=== PATIENT | male | born 1985 | race Two or more races ===

== ENCOUNTER 2016-09-05 03:31 | Emergency (ER) | payer SELFPAY ==
[2016-09-05 03:47] VITALS: RESP 18; TEMP 96
[2016-09-05] MEDS ORDERED: Sodium Chloride 0.9% 1,000 ML PRIMARY IV ONE (03:50)
[2016-09-05] MEDS ORDERED: NORMAL SALINE 10 ML SYRINGE FLUSH IVP PRN (03:50)
[2016-09-05] MEDS ORDERED: Sodium Chloride 0.9% 1,000 ML, Magnesium Sulfate 2gm (Premix) 50 ML with Multivitamin I... IV ONE ×5 (03:52)
[2016-09-05 04:05] LABS: BASOPHILS # (AUTO) 0.15 10*3/UL; EOSINOPHILS # (AUTO) 0.03 10*3/UL; EOSINOPHILS % (AUTO) 0.4 % (0-8); HEMATOCRIT 42.9 % (42.0-52.0); HEMOGLOBIN 15.6 g/dL (14.0-18.0); LYMPHOCYTES # (AUTO) 2.26 10*3/uL; MEAN CORPUSCULAR HEMOGLOBIN 32.4 PG (27-31); MEAN CORPUSCULAR HGB CONC 36.4 g/dL (33-37); MEAN PLATELET VOLUME 8.6 FL (7.4-12.2); MONOCYTES % (AUTO) 7.8 % (5-15); NEUTROPHILS # (AUTO) 4.63 10*3/UL; NEUTROPHILS % (AUTO) 60.3 % (50-80); RED BLOOD COUNT 4.82 10^6/uL (4.70-6.10)
[2016-09-05 04:07] LABS: PLATELET MORPHOLOGY COMMENT NORMAL MORPHOLOGY (NORM); RBC MORPHOLOGY COMMENT NORMAL MORPHOLOGY (NORM); WBC MORPHOLOGY COMMENT NORMAL MORPHOLOGY (NORM)
[2016-09-05 04:11] LABS: BLOOD UREA NITROGEN 8 mg/dL (7-22); BUN/CREATININE RATIO 13.33 (6-20); CALCIUM 8.9 mg/dL (8.7-10.7); EST GLOMERULAR FILTRATION > 60 (>60 ml/min/1.73m(2)); SERUM ALBUMIN 4.9 g/dL (3.5-4.8)
--- NOTE | 2016-09-05 04:43 | DI ---
HISTORY: Trauma. COMPARISON: None available. TECHNIQUE: Non-contrast CT brain. Overall image quality is satisfactory. FINDINGS: EXTRACRANIAL SOFT TISSUES- Right posterior parietal/occipital soft tissue contusion. BONE - Calvarium: No depressed skull fracture. Temporal mastoids: No effusion. Included paranasal sinuses: Well aerated, noting maxillary sinus mucosal thickening. Orbits: No acute abnormality. CSF SPACES - Ventricles: Normal. Subarachnoid spaces: Normal. BRAIN - No abnormal parenchymal attenuation. No acute intracranial bleed, large vessel territory infarct or midline shift. IMPRESSION: 1. No acute intracranial bleed or depressed skull fracture. 2. Right posterior parietal/occipital soft tissue scalp contusion. RECOMMENDATION: If discrepancy between CT findings and neurologic status, consider MRI for further e valuation.
[2016-09-05 05:43] LABS: URINE SAMPLE TYPE VOIDED SPECIMEN
[2016-09-05 05:44] LABS: AMPHETAMINE SCREEN NEGATIVE (NEG); CANNABINOID SCREEN,URINE NEGATIVE (NEG); COCAINE SCREEN NEGATIVE (NEG); METHADONE URINE SCREEN NEGATIVE (NEG); METHAMPHETAMINES SCREEN,URINE NEGATIVE (NEG); OPIATE SCREEN,URINE NEGATIVE (NEG); URINE SPECIFIC GRAVITY - MAN 1.008
--- NOTE | 2016-09-05 06:33 | PDOC ---
General Adult HPI - General Chief Complaint: Clear for Confinement/DUI Draw Stated Complaint: ETOH INTOXICATION Date Seen by Provider: 09/05/16 Time Seen by Provider: 03:50 Source: POSITIVE: Patient, Police Exam Limitations: POSITIVE: No limitations Nurse's Notes Reviewed & Considered: Yes - History of Present Illness Initial Comment: The patient is a 30-year-old male brought to the emergency room by the [place] Police. Patient was reportedly found lying in the middle of the street in [place]. Passersby called the police and the police brought him here. The patient is apparently well known to the [place] police as a chronic alcoholic. Patient was reportedly "passed out drunk" in the middle of the street. Police officers state that upon their arrival the patient would only weakly respond to sternal rub. He was noted to have an abrasion over the right parietal occipital area. Patient may have struck his head when he fell down in the street intoxicated, however other etiologies of his scalp trauma cannot be ruled out. Patient has a long-standing history of chronic daily alcohol abuse. He denies any known medical problems or surgical history. He denies any substance abuse other than alcohol. He states he does not smoke. Have you received a tetanus shot in the past 10 years?: Unknown Body Location Affected: REPORTS: Head, Other (Alcoholic intoxication) Timing: REPORTS: Unknown Duration: Unknown (Please for called to the scene somewhat over an hour [employer]) Severity: Severe (Severe alcoholic intoxication) Quality: REPORTS: Other (Patient denies any pain anywhere) Context: REPORTS: Fall Modifying Factors: improves with: Nothing Similar Symptoms Previously: Yes Recent Care Received: REPORTS: Denies Any Prior Injuries Related to Current Complaint?: Yes (abrasion right occipital parietal area of the scalp) - Patient Home Medications Home Medications: Home Medications HydrOXYzine Cap [Vistaril Cap] 25 mg PO PRN cap 04/29/15 - Patient Allergies Allergies/Adverse Reactions: Allergies Allergy/AdvReac Type Severity Reaction Status Date / Time No Known Allergies Allergy Verified 09/05/16 03:36 Past Medical History - heen HEENT History: Denies History Cardiovascular History: Denies History Respiratory History: Denies History Gastrointestinal History: Denies History Genitourinary History: Denies History Endocrine History: Denies History Musculoskeletal History: Denies History Neurological History: Denies History Blood Disorders: Denies History Psychiatric History: Denies History History of Sexually Transmitted Diseases: No Male Reproductive History: Denies History Cancer History: Denies History In Past Year Been Physically Harmed or Verbally Threatened: No History of MDRO: No History of Other Communicable Diseases: No Tobacco Use: Never Smoker Alcohol Use: Heavy Substance Use Type: None Previous Surgical History: No Significant Family History: No pertinent family hx Past Medical History Reviewed: Reviewed - No Changes ROS - Limitations ROS Limitations: Intoxication (Patient smells very heavily of alcohol; however he is alert to place and situation and person. He states he does not recall falling and striking his head.) Constitution: REPORTS: Denies Symptoms Cardiovascular: REPORTS: Denies Cardiac Symptoms Respiratory: REPORTS: Denies Resp Symptoms Neurological: REPORTS: Denies Neuro Symptoms Gastrointestinal: REPORTS: Denies GI Symptoms Endocrine: REPORTS: Denies Symptoms Musculoskeletal: REPORTS: Denies MS Symptoms Genitourinary: REPORTS: Denies Symptoms Eyes: REPORTS: Denies Symptoms ENT: REPORTS: Denies Symptoms Skin: REPORTS: Other (Abrasion right occipital parietal area) Lympathic: REPORTS: Denies Lympathic Symptoms Immunologic: POSITIVE: Denies Symptoms Psychiatric: POSITIVE: Denies Psych Symptoms General Adult Exam - General Appearance General Appearance: POSITIVE: Alert, Cooperative, No Acute Distress. NEGATIVE: No Evidence of Trauma (Abrasion right occipital parietal area of scalp) - HEENT HEENT: POSITIVE: Eyes Inspection Nml, Ears Inspection Nml, Nose Inspection Nml, Oral/Dental Inspect. Nml, Pharynx Inspect. Nml, PERRL, EOMI. NEGATIVE: Head Inspection Nml (Abrasion right occipital parietal area of scalp) - Pupils Pupil Size: 4 mm: Bilateral (PERRLA) - Neck Neck: POSITIVE: Normal Inspection, Thyroid Normal - Respiratory Respiratory: POSITIVE: No Respiratory Distress, Breath Sounds Normal, Chest Non- Tender - Cardiovascular Cardiovascular: POSITIVE: Regular Rate & Rhythm, No Murmur, No Gallop, PMI Normal Peripheral Pulses: Radial (R): 2+, Radial (L): 2+ - Abdomen Abdomen: Soft: (All Quadrants), Normal Bowel Sounds: (All Quadrants), Denies Tenderness: (All Quadrants), No Splenomegaly: (All Quadrants), No Hepatomegaly: (All Quadrants), No Guarding: (All Quadrants), No Rebound: (All Quadrants), No Palpable Pulse: (All Quadrants), No Palpabale Mass: (All Quadrants), No Distention: (All Quadrants), No Rigidity: (All Quadrants) - Back Back: POSITIVE: Normal Inspection - Skin Skin: POSITIVE: Normal Color, Warm, Dry, Other (Abrasion right occipital parietal area of scalp) - Extremities Extremity: Non-Tender: (All Extremities), Normal ROM: (All Extremities), Normal Inspection: (All Extremities) - Neurological / Psychological Neurological: POSITIVE: Oriented X3, circle edger Normal As Tested, Motor Normal, Sensation Normal, 5, 6 Images - Head Head: 1 - Scalp abrasion General Adult Progress - Results Reviewed by me Xrays/CTs/US Reviewed by me: Yes Discussed with Radiologist: Yes Radiology Findings: CT scan of head without contrast normal except for soft tissue contusion right occipital parietal area scalp Lab Results Reviewed: Yes (blood alcohol for 94) Lab Results:: Laboratory Results 09/05/16 09/05/16 Range/Units 03:58 05:00 WBC 7.68 (4.8-10.8) 10^3/uL RBC 4.82 (4.70-6.10) 10^6/uL Hgb 15.6 (14.0-18.0) g/dL Hct 42.9 (42.0-52.0) % MCV 89.0 (80-90) FL MCH 32.4 H (27-31) PG MCHC 36.4 (33-37) g/dL RDW Std Deviation 40.8 (39-50) fL RDW Coeff of Julia 12.7 (11.5-14.5) % Plt Count 196 (140-350) 10*3/uL MPV 8.6 (7.4-12.2) FL Immature Gran % (Auto) 0.1 (0-5) % Neut % (Auto) 60.3 (50-80) % Lymph % (Auto) 29.4 (10-50) % Mchenry % (Auto) 7.8 (5-15) % Eos % (Auto) 0.4 (0-8) % Baso % (Auto) 2.0 H (0-1) % Immature Gran # (Auto) 0.01 10*3/UL Neut # (Auto) 4.63 10*3/UL Lymph # (Auto) 2.26 10*3/uL Mchenry # (Auto) 0.60 (0.3-0.8) 10*3/UL Eos # (Auto) 0.03 10*3/UL Baso # (Auto) 0.15 10*3/UL WBC Morphology Comment Normal morphology (NORM) Plt Morphology Comment Normal morphology (NORM) RBC Morph Comment Normal morphology (NORM) Sodium 145 (135-145) meq/L Potassium 4.1 (3.8-5.2) meq/L Chloride 107 (98-112) meq/L Carbon Dioxide 21 L (23-33) meq/L Anion Gap 17 (5-20) BUN 8 (7-22) mg/dL Creatinine 0.6 L (0.70-1.50) mg/dL Estimated GFR > 60 (>60 ml/min/1.73m(2)) BUN/Creatinine Ratio 13.33 (6-20) Glucose 100 (78-110) mg/dL Calculated Osmolality 297.0 H (267-292) mOsm/kg Calcium 8.9 (8.7-10.7) mg/dL Magnesium 2.4 (1.6-2.4) mg/dL Total Bilirubin 0.6 (0.3-1.2) mg/dL AST 282 H (21-57) IU/L ALT 175 H (21-72) IU/L Alkaline Phosphatase 120 (38-126) IU/L Total Protein 8.6 H (6.1-8.0) g/dL Albumin 4.9 H (3.5-4.8) g/dL Globulin 3.7 (2.50-4.10) g/dL Albumin/Globulin Ratio 1.30 (1.3-2.0) mg/g Ur Collection Type Voided specimen U Specif Grav (Refrac) 1.008 Urine Opiates Screen Negative (NEG) Ur Buprenorphine Negative (NEG) Ur Oxycodone Screen Negative (NEG) Urine Methadone Screen Negative (NEG) Ur Propoxyphene Screen Negative (NEG) Barbiturate Screen Negative (NEG) U Tricyclic Antidepress Negative (NEG) Phencyclidine Screen Negative (NEG) Amphetamines Screen Negative (NEG) U Methamphetamines Scrn Negative (NEG) Benzodiazepines Screen Negative (NEG) Cocaine Screen Negative (NEG) U Marijuana (THC) Screen Negative (NEG) Serum Alcohol 494 H* (0-10) mg/dL - Patient's Progress Pain Medication Addressed: POSITIVE: Not Applicable School/Work Release Addressed: POSITIVE: Yes (Patient medically cleared to accompany police for fpc) Re-Examine Time: 06:05 Re-Examine Comment: Patient given a banana bag of normal saline with 100 mg of thiamine, 1 mg folic acid and 2 g of magnesium sulfate. Patient completely alert and oriented on discharge. Patient observed in the emergency room for 2-1 /2 hours due to his high blood alcohol level. Patient medically cleared to accompany police for retention. Status: POSITIVE: Improved, Re-Examined Antibiotics Given: No - Consult Counseled: POSITIVE: Patient, RE: Lab Results, RE: Radiology Results, RE: DX, RE : Need for F/U Patient Care Time - Estimated PCT Patient Care Time (In Minutes): 60 Vital Signs - Recent Vital Signs Vital Signs: Vital Signs (Last 8 hours) Temp Pulse Resp BP Pulse Ox 09/05/16 03:34 96.0 F L 91 18 142/99 97 - VS Reviewed Vital Signs Reviewed: Yes Discharge Clinical Impression: Alcohol abuse, Alcohol intoxication Discharge Disposition: Discharged to Custody of Law Enforcement Condition: Good Patient Instructions Given at Discharge: Alcohol Intoxication (ED), Abuse of Alcohol (ED) Additional Instructions: Please avoid further use of alcohol. I would recommend you seek alcohol abuse counseling. Return as necessary. Follow-up with your primary care provider. Your medically cleared to accompany the police. Wash her scalp abrasions well soap and water daily. Follow Up With: DANIEL CORTEZ [Primary Care Provider] - (Instructions as above. Return as necessary.) Date Decision to Transfer to Another Facility: 09/05/16 Time Decision to Transfer to Another Facility: 06:00
== END 2016-09-05 06:23 ==
LOC: ER 03:31
DX: F10.129 Alcohol abuse with intoxication, unspecified (principal); S00.01XA Abrasion of scalp, initial encounter; S00.03XA Contusion of scalp, initial encounter; W18.39XA Other fall on same level, initial encounter
CPT/HCPCS: 70450; 80053; 80305; 80320; 83735; 85025; 96361; 96365; 99283 ×2; J3411; J3475; J7030